=== PATIENT | female | born 1990 | race African-American/Black ===

== ENCOUNTER 2017-01-23 15:06 | Outpatient (CLI) | payer OTHER ==
[~2017-01-23] VITALS: Ht 162.6 cm; Wt 60.5 kg
[~2017-01-23 15:06] MED LIST: CEPH-443 PO; METGEL45 TOP; NITR-58 PO; NO MEDS
[2017-01-23 15:12] VITALS: Ht 162.6 cm; Wt 60.5 kg
[2017-01-23 15:13] VITALS: BP 118/74; PULSE 63; RESP 19
--- NOTE | 2017-01-23 15:47 | RADRPT ---
PROCEDURE: US OB biophysical profile. CLINICAL INDICATION: Spotting TECHNIQUE: Multiple sonographic images of the pelvis were obtained. The images were reviewed on a PACS workstation. COMPARISON: No prior studies are available for comparison. FINDINGS: There is a single viable intrauterine gestation. Cardiac activity is present with 141 a beats per m inute. There is a vertex presentation. The placenta is right lateral in location. There is no evidence of placental abruption. There is a mildly low amount of amniotic fluid with an ROE = 7.6 cm. Biophysical profile: movement 2/2 tone 2/2. breathing 2/2 ROE 2/2 Total 06/17 RPTAT: AA . IMPRESSION: Normal biophysical profile. Mildly low ROE of 7.6 cm. Physician Ilana Date Time Electronically viewed and signed by Physician Ilana on 01/23/2017 15:47 /
--- NOTE | 2017-01-23 16:17 | CONS ---
Date/Time of Note Date/Time of Note DATE: 01/23/17 TIME: 16:10 Consultation Date/Type/Reason Admit Date/Time January 23, 2007 OB triage consult Initial Consult Date Reason for Consultation Vaginal spotting rule out placenta previa 24 HR Interval Summary Free Text/Dictation This patient is a 20 years old 3 para 0 2 with EDC of February which makes her 36 weeks and 2 days She came to obstetrical triage clinic complaining of the vaginal spotting and lower abdominal pressure since this morning On examination patient has no abdominal tenderness no contractions fetus appears to be in vertex presentation No CVA tenderness . Her vital signs are normal; blood pressure 118/74 pulse rate 63 respiration 18 temperature 98. Pelvic exam was not performed. On ultrasound study her NST was reactive her biophysical profile was 8 of 8 with ROE of 7.67 no evidence of placental abruption placenta was located in the right lateral area Subjective hx not possible: pt critical Constitutional: No chills, No diaphoresis, No disoriented, No febrile, No improved, No no complaints, No other, No poor po, No requiring IVF, No requiring O2 Detailed Summary Eyes: No discharge, No no complaints, No other, No pain, No redness, No visual change ENT: No bleeding, No congestion, No discharge, No dysphagia, No no complaints, No other, No pain, No sore throat Respiratory: No cough, No no complaints, No other, No pain, No pleuritic pain, No shortness of breath, No sputum, No wheezing Cardiovascular: No chest pain, No edema, No lightheadedness, No no complaints, No orthopenea, No other, No palpitations, No paroxysmal nocturnal dyspnea Gastrointestinal: No blood, No constipation, No decreased appetite, No diarrhea , No flatus, No nausea, No no complaints, No other, No pain, No passing stool, No vomiting Genitourinary: other (As I mentioned no CVA tenderness no suprapubic area tenderness no dysuria), No bleeding, No discharge, No dysuria, No flank pain, No hematuria, No no complaints Musculoskeletal: No back pain, No bone/joint pain, No neck pain, No no complaints, No other, No restricted range of motion, No swelling Skin: No bruising, No erythema, No laceration, No no complaints, No other, No pruritis, No rash, No skin lesions Neurologic: No confusion, No dizziness, No focal-weakness, No headache, No no complaints, No other, No seizure, No syncope Endocrine: No dry skin, No no complaints, No other, No polydypsia, No polyuria , No temp intolerance Lymphatic: No adenopathy, No lymphadema, No no complaints, No other, No tender nodes Exam/Review of Systems Vital Signs Vitals Vital Signs Date Time Temp Pulse Resp B/P Pulse Ox O2 Delivery O2 Flow Rate FiO2 01/23/17 15:13 98.6 63 19 118/74 99 Room Air RENZO MILLER MD Jan 23, 2017 16:17
--- NOTE | 2017-01-23 16:36 | TRIAGE ---
OB Triage Datetime Report Generated by CPN: 01/23/2017 16:35 Datetime: 01/23/2017 15:59 Stage of : OB Triage Maternal Assessment Level of Consciousness: Fully Conscious DTR's/Clonus: DTRs 1+ Headache: Denies Breath Sounds, Left: Clear and Equal Breath Sounds, Right: Clear and Equal Nausea/Vomiting: Denies RUQ Epigastric Pain: Denies Labor Evaluation Frequency: NONE Monitor Mode: External Resting Tone [place]: Relaxed Heart Rate FHR Baseline Rate: 125 Monitor Mode: External US Variability: Moderate 6-25 bpm Accelerations: 15X15 Decelerations: None Category: Category I Pain Assessment Pain Scale: 0 Pain Presence: None/Denies Pain Type: N/A Pain Goal: 3 Vaginal Exam Membrane Status: Intact Datetime: 01/23/2017 15:26 Stage of : OB Triage Maternal Assessment Level of Consciousness: Fully Conscious DTR's/Clonus: DTRs 1+ Headache: Denies Blurred Vision: No Breath Sounds, Left: Clear and Equal Breath Sounds, Right: Clear and Equal Nausea/Vomiting: Denies RUQ Epigastric Pain: Denies Facial Edema: 1+ Labor Evaluation Frequency: NONE Monitor Mode: External Resting Tone [place]: Relaxed Heart Rate FHR Baseline Rate: 125 Monitor Mode: External US Variability: Moderate 6-25 bpm Accelerations: 15X15 Decelerations: None Category: Category I Pain Assessment Pain Scale: 0 Pain Presence: None/Denies Pain Type: N/A Pain Goal: 3 Vaginal Exam Membrane Status: Intact Datetime: 01/23/2017 15:16 Assessment Type: Triage EGA: 36.2 Maternal Assessment Level of Consciousness: Fully Conscious DTR's/Clonus: DTRs 2+; No Clonus Headache: Denies Blurred Vision: No Respiratory Effort: Unlabored; Regular Rhythm; Equal Expansion Breath Sounds, Left: Clear and Equal Breath Sounds, Right: Clear and Equal Nausea/Vomiting: Denies RUQ Epigastric Pain: Denies Lower Extremities Edema: None Degree: None Upper Extremities Edema: None Degree: None Facial Edema: None Fall Risk Assessment History of Falling: (0) No Secondary Diagnosis: (0) No Ambulatory Aid: (0) Bedrest/Nurse Assist IV Therapy: (0) No Gait: (0) Normal/Bedrest/Immobile Mental Status: (0) Oriented to Own Ability Fall Score: 0 Fall Risk Score Definition: No Risk: No action required Datetime: 01/23/2017 15:04 Time of Arrival: 01/23/2017 15:04 Arrived By: Ambulatory Arrived From: Home Chief Complaint: PT CAME IN C/O SPOTTING AFTER BEEIN CHECKED BY THE MD AT 10:00. DENIES ANY ABDOMI NAL TRAUMA AND STATES + MOVEMENT Movement: Present Contractions: Denies/Absent Rupture of Membranes: Denies Vaginal Bleeding: Normal Show Vaginal Discharge: Denies Recent Sexual Intercouse: Denies Abdominal Trauma: Not Applicable Additional Patient Complaints: NONE Initial Plan: NST AND BPP
== END 2017-01-23 16:04 | disposition home or self-care (01) ==
LOC: OBT 15:06 → L-D 15:06 → OBT 16:04
PROVIDERS: ATTEND Obstetrics & Gynecology
DX: O47.03 False labor before 37 completed weeks of gestation, third trimester (principal); Z3A.36 36 weeks gestation of pregnancy
CPT/HCPCS: 76818; Z7500; G0463

== ENCOUNTER 2017-01-25 13:11 | Outpatient (CLI) | payer OTHER ==
[~2017-01-25] VITALS: Ht 160 cm; Wt 62.7 kg
[~2017-01-25 13:11] MED LIST changes: -CEPH-443 PO; -METGEL45 TOP; -NITR-58 PO
[2017-01-25] MEDS ORDERED: PRENAT PO (13:18)
[2017-01-25] MEDS ORDERED: CITRACAL PO (13:18)
[2017-01-25] MEDS ORDERED: FOLI1POW MC (13:19)
[2017-01-25 13:20] VITALS: BP 112/66; PULSE 76; RESP 18; Ht 160 cm; Wt 62.7 kg
--- NOTE | 2017-01-25 14:23 | RADRPT ---
PROCEDURE: US biophysical profile. CLINICAL INDICATION: Decreased motion. TECHNIQUE: Multiple sonographic images of the uterus were obtained. The images were revi ewed on a PACS workstation. COMPARISON: No prior studies are available for comparison. FINDINGS: There is a single live intrauterine gestation. heart rate is 157 beats per minute. The position is cephalic. The placenta is fundal posterior grade 1 with no abruption or previa. The ROE is 9.1 cm. (Normal = 5-20 cm.) Breathing Movement: 2 Gross Body Movement: 2 Tone: 2 Qualitative Amniotic Fluid Volume: 2 TOTAL: 8 IMPRESSION: 1. The biophysical score is 8/8. RPTAT: QQ .Efrain Corral MD, MD Date Time Electronically viewed and signed by .Efrain Corral MD, on 01/25/2017 14:23 .R/
--- NOTE | 2017-01-25 16:01 | TRIAGE ---
OB Triage Datetime Report Generated by CPN: 01/25/2017 16:00 Datetime: 01/25/2017 15:21 Labor Evaluation Frequency: OCCAS Monitor Mode: External Duration (sec)2399: 60-90 Quality: Mild Pattern: Normal: <= 5 Contractions in 10 Minutes Resting Tone [place]: Relaxed Heart Rate FHR Baseline Rate: 135 Monitor Mode: External US FHR Baseline Changes: No Baseline Change Variability: Moderate 6-25 bpm Accelerations: 15X15 Decelerations: None Category: Category I Datetime: 01/25/2017 14:30 Labor Evaluation Frequency: OCCAS Monitor Mode: External Duration (sec)2399: 40-60 Quality: Mild Pattern: Normal: <= 5 Contractions in 10 Minutes Resting Tone [place]: Relaxed Heart Rate FHR Baseline Rate: 145 Monitor Mode: External US FHR Baseline Changes: No Baseline Change Variability: Moderate 6-25 bpm Accelerations: 15X15 Decelerations: None Category: Category I Datetime: 01/25/2017 13:26 Labor Evaluation Frequency: OCCAS Monitor Mode: External Duration (sec)2399: 40-60 Quality: Mild Pattern: Normal: <= 5 Contractions in 10 Minutes Resting Tone [place]: Relaxed Heart Rate FHR Baseline Rate: 135 Monitor Mode: External US Variability: Moderate 6-25 bpm Accelerations: 15X15 Decelerations: None Category: Category I Datetime: 01/25/2017 13:25 Assessment Type: Admission Assessment Maternal Assessment Level of Consciousness: Fully Conscious DTR's/Clonus: DTRs 2+; No Clonus Headache: Denies Blurred Vision: No Respiratory Effort: Unlabored; Regular Rhythm; Equal Expansion Breath Sounds, Left: Clear and Equal Breath Sounds, Right: Clear and Equal Nausea/Vomiting: Denies RUQ Epigastric Pain: Denies Lower Extremities Edema: None Degree: None Upper Extremities Edema: None Degree: None Facial Edema: None Fall Risk Assessment History of Falling: (0) No Secondary Diagnosis: (0) No Ambulatory Aid: (0) Bedrest/Nurse Assist IV Therapy: (0) No Gait: (0) Normal/Bedrest/Immobile Mental Status: (0) Oriented to Own Ability Fall Score: 0 Fall Risk Score Definition: No Risk: No action required Datetime: 01/25/2017 13:23 Time of Arrival: 01/25/2017 13:05 EGA: 36.4 Arrived By: Ambulatory Arrived From: Home Chief Complaint: FOLLOW UP ROE Movement: Present Contractions: Denies/Absent Rupture of Membranes: Denies Vaginal Bleeding: None Vaginal Discharge: Denies Recent Sexual Intercouse: Denies Abdominal Trauma: Not Applicable Patient Complaints: Other Time Provider Notified: 01/25/2017 15:30 Provider Notified: DR GATICA Initial Plan: NST, BPP WITH ROE Datetime: 01/23/2017 15:16 EGA: 36.2 Fall Score: 0 Fall Risk Score Definition: No Risk: No action required
--- NOTE | 2017-01-25 16:03 | QN ---
Documentation Comment Laborist Dr Eagle's pt 26 y.o. A2 with an IUPat 36w 4d here for f/u low ROE. Prior ROE yesterday was 7.6. Pt feels the baby moving. No leaking. No bleeding. PMHx: none. PSHx: none. NKDA. BP 112/66 T=97.9. NST: baseline 130 bpm with accels to 160 bpm. No decels. UC's q 10 minutes, occasionally felt by pt. ROE 9.1 cm. BPP 8/8. A: IUP at 36w 4d. Normal ROE. P; D/C home. Follow up with her MD as scheduled. JACOBO GATICA MD Jan 25, 2017 16:03
== END 2017-01-25 16:08 | disposition home or self-care (01) ==
LOC: L-D 13:11 → OBT 13:11
PROVIDERS: ATTEND Obstetrics & Gynecology
DX: O41.03X0 Oligohydramnios, third trimester, not applicable or unspecified (principal); Z3A.36 36 weeks gestation of pregnancy
CPT/HCPCS: 76818; Z7500; G0463

== ENCOUNTER 2017-02-03 21:18 | Outpatient (CLI) | payer OTHER ==
[~2017-02-03] VITALS: Ht 160 cm; Wt 63.6 kg
[~2017-02-03 21:18] MED LIST changes: +CITRACAL PO; +FOLI1POW MC; +PRENAT PO
[2017-02-03 21:33] VITALS: Ht 160 cm; Wt 63.6 kg
[2017-02-03 21:34] VITALS: BP 112/56; PULSE 79; RESP 18
[2017-02-03 22:20] LABS: ADD UMIC YES; URINE BILIRUBIN (Dip) NEGATIVE (NEGATIVE); URINE BLOOD (Dip) NEGATIVE (NEGATIVE); URINE COLOR LT. YELLOW (YELLOW); URINE GLUCOSE (Dip) NEGATIVE (NEGATIVE); URINE KETONES (Dip) TRACE (NEGATIVE); URINE LEUKOCYTE ESTERASE (Dip) TRACE (NEGATIVE); URINE NITRITE (Dip) NEGATIVE (NEGATIVE); URINE TOTAL PROTEIN (Dip) NEGATIVE (NEGATIVE); URINE UROBILINOGEN (Dip) 0.2 E.U./dL (0.1-1.0)
--- NOTE | 2017-02-03 22:42 | RADRPT ---
PROCEDURE: Biophysical profile. CLINICAL INDICATION: Pelvic pain. TECHNIQUE: Multiple sonographic images of the pelvis were obtained with transabdominal technique. COMPARISON: 01/25/2017. FINDINGS: There is a single living intrauterine gestation with the fetus in a vertex position. The placenta i s fundal and left lateral in location, grade 1 to 2. heart tones of 137 beats per minute are i dentified. There is normal amniotic fluid volume with an ROE of 4.9 cm. breathing movements = 2 Gross body movements = 2 tone = 2 Qualitative AFV = 0 IMPRESSION: Biophysical profile 6 out of 8. Oligohydramnios with an ROE of 4.9 cm. .Barrington Mcqueen MD, Date Time Electronically viewed and signed by .Barrington Mcqueen MD, on 02/03/2017 22:41 .T/
[2017-02-03 22:45] LABS: BACTERIA,URINE MODERATE; SQUAMOUS EPITHELIAL CELL,UR MANY; URINE RBCS NONE SEEN /HPF ([, 0])
--- NOTE | 2017-02-03 23:17 | PN ---
Date/Time of Note Date/Time of Note DATE: 02/03/17 TIME: 23:13 OB Subjective Subjective Subjective Patient is a primigravida at 37 weeks of gestation who presents with leaking of fluid, no contractions, no vaginal bleeding Patient reports positive movement Patient reports she was previously seen 2 weeks ago with the same complaint and ROE was noted to be borderline She was given p.o. hydration and the repeat ROE was within normal limits OB Objective Objective Objective No pooling and no nitrazine upon examination OB ultrasound indicating ROE 4.9 HEENT: WNL Heart: Rhythm Normal Abdomen: WNL Extremities: Normal Cervical Dilatation: None Membranes: Intact Heart Rate: 140's Accelerations: Accelerations Present Decelerations: No Decelerations Contractions on Admission: None OB Assessment/Plan Other Assessment: Rule out rupture of membranes Other plan: IV fluid hydration We will repeat ROE after couple hours and request for estimated weight AMADO MARTE Feb 03, 2017 23:17
[2017-02-03] MEDS: LACTATED RINGER'S 1,000 ML IV SCH ×2 (23:26→23:46)
--- NOTE | 2017-02-04 00:21 | RADRPT ---
PROCEDURE: Obstetrical ultrasound greater than 14 weeks CLINICAL INDICATION: Rupture of membranes. Follow-up evaluation TECHNIQUE: Real time sonographic imaging of the gravid uterus is performed transabdominally and mu ltiple static duran scale and Doppler images are submitted for review as are measurements. The image s are reviewed on the PACS. COMPARISON: 02/03/2017 FINDINGS: There is a single living intrauterine gestation in cephalic presentation. The heart beat is estimated at 132 bpm. The measurements are as follows: BPD:9.01 cm HC:32.24 cm AC:32.74 cm FL:7.16 cm Estimated gestational age is 36 weeks 4 days. The estimated date of delivery is 02/27/2017. The estimated weight is 2987 grams. Placenta is anterior fundal and grade2. There is no evidence of placenta previa or abruption. The amniotic fluid index is low estimated at 6.2 cm. RPTAT:HJJR IMPRESSION: 1. Single viable intrauterine gestation in cephalic presentation estimated at 36 weeks 4 days with t he estimated date of delivery 02/27/2017. 2. Estimated weight 2987 g. 3. Amniotic fluid index of 6.2 cm, previously 4.9 cm on the study of 02/03/2017. Physician Kraig Date Time Electronically viewed and signed by Physician Kraig on 02/04/2017 00:20 /
[2017-02-04] MEDS: LACTATED RINGER'S 1,000 ML IV SCH (00:22)
--- NOTE | 2017-02-04 02:13 | TRIAGE ---
OB Triage Datetime Report Generated by CPN: 02/04/2017 02:13 Datetime: 02/04/2017 00:30 Stage of : OB Triage Labor Evaluation Frequency: 0 Monitor Mode: External Heart Rate FHR Baseline Rate: 135 Monitor Mode: External US FHR Baseline Changes: No Baseline Change Variability: Moderate 6-25 bpm Accelerations: 15X15 Decelerations: None Category: Category I Datetime: 02/03/2017 23:30 Labor Evaluation Frequency: 0 Monitor Mode: External Heart Rate FHR Baseline Rate: 135 Monitor Mode: External US FHR Baseline Changes: No Baseline Change Variability: Moderate 6-25 bpm Accelerations: 15X15 Category: Category I Datetime: 02/03/2017 23:07 Stage of : OB Triage Datetime: 02/03/2017 22:54 Comments: LOSS OF CONTACT Datetime: 02/03/2017 22:52 Stage of : OB Triage Datetime: 02/03/2017 22:30 Labor Evaluation Frequency: 1 Monitor Mode: External Duration (sec)2399: 60 Heart Rate FHR Baseline Rate: 135 Monitor Mode: External US FHR Baseline Changes: No Baseline Change Variability: Moderate 6-25 bpm Accelerations: 15X15 Decelerations: None Category: Category I Datetime: 02/03/2017 22:07 Labor Evaluation Frequency: 1 Monitor Mode: External Duration (sec)2399: 60 Quality: Mild Pattern: Normal: <= 5 Contractions in 10 Minutes Resting Tone [place]: Relaxed Heart Rate FHR Baseline Rate: 145 FHR Baseline Changes: No Baseline Change Variability: Moderate 6-25 bpm Accelerations: 15X15 Decelerations: None Category: Category I Datetime: 02/03/2017 21:55 Stage of : OB Triage Datetime: 02/03/2017 21:45 Vaginal Exam Dilatation (cms): 0.0 Effacement (%): 0 Station: -3 Exam By: Lolis BUSH RN Membranes Ruptured Date/Time: 02/03/2017 21:00 Amniotic Fluid Color: Clear Vaginal Bleeding: None Pool: Negative ROM Test Kit: OBTAINED AND SENT Cervix, Consistency: Firm Cervix, Position: Posterior Datetime: 02/03/2017 21:27 Stage of : OB Triage Time of Arrival: 02/03/2017 21:19 EGA: 37.6 Arrived By: Wheelchair Arrived From: Home Chief Complaint: ROM @ 2100 Movement: Present Contractions: Irregular Time Contractions Began: 02/03/2017 11:30 Rupture of Membranes: Unsure Vaginal Bleeding: None Vaginal Discharge: Present Recent Sexual Intercouse: Denies Abdominal Trauma: Not Applicable Time Provider Notified: 02/03/2017 21:55 Provider Notified: DR MARSHALL Initial Plan: CALL BELLA CANTU/ TO RETURN FOR NST, BPP 02/06/17 Maternal Assessment Level of Consciousness: Fully Conscious DTR's/Clonus: DTRs 2+; No Clonus Headache: Denies Blurred Vision: No Respiratory Effort: Unlabored; Regular Rhythm; Equal Expansion Breath Sounds, Left: Clear and Equal Breath Sounds, Right: Clear and Equal Nausea/Vomiting: Denies RUQ Epigastric Pain: Denies Lower Extremities Edema: Bilateral Lower Extremities Degree: 1+ Upper Extremities Edema: None Degree: None Facial Edema: None Temperature Route: Oral Fall Risk Assessment History of Falling: (0) No Secondary Diagnosis: (0) No Ambulatory Aid: (0) Bedrest/Nurse Assist IV Therapy: (0) No Gait: (0) Normal/Bedrest/Immobile Mental Status: (0) Oriented to Own Ability Fall Score: 0 Fall Risk Score Definition: No Risk: No action required Monitor Mode: External Monitor Mode: External US Pain Assessment Pain Scale: 8 Pain Presence: Intermittent Pain Type: Contraction Pain Location: Abdomen; Back Datetime: 01/25/2017 13:25 Fall Score: 0 Fall Risk Score Definition: No Risk: No action required Datetime: 01/25/2017 13:23 EGA: 36.4 Datetime: 01/23/2017 15:16 EGA: 36.2 Fall Score: 0 Fall Risk Score Definition: No Risk: No action required
[2017-02-04] MEDS ORDERED: LACTATED RINGER'S 1,000 ML IV SCH (22:51)
== END 2017-02-04 00:35 | disposition home or self-care (01) ==
LOC: OBT 21:18 → L-D 21:18 → OBT 02-04 00:35
PROVIDERS: ATTEND Obstetrics & Gynecology
DX: O47.1 False labor at or after 37 completed weeks of gestation (principal); Z3A.37 37 weeks gestation of pregnancy
CPT/HCPCS: 76815; 76818; 81001; 84112; 87086; 96360; J7120; Z7500; 81003; G0463

== ENCOUNTER 2017-02-05 10:31 | Outpatient (CLI) | payer OTHER ==
[~2017-02-05] VITALS: Ht 160 cm; Wt 62.5 kg
[2017-02-05 10:44] VITALS: BP 111/71; PULSE 90; RESP 18; Ht 160 cm; Wt 62.5 kg
--- NOTE | 2017-02-05 11:07 | RADRPT ---
PROCEDURE: US OB biophysical profile. CLINICAL INDICATION: decreased movements, oligohydramnios TECHNIQUE: Multiple sonographic images of the pelvis were obtained. The images were reviewed on a PACS workstation. COMPARISON: 02/03 FINDINGS: There is a single viable intrauterine gestation. Cardiac activity is present with 146 beats per min erik. There is a vertex presentation. The placenta is posterior. There is no evidence of placental abruption. There is a normal amount of amniotic fluid with an ROE = 8.2 cm. Biophysical profile: movement 2/2 tone 2/2. breathing 2/2 ROE 2/2 Total 06/17 RPTAT: AA . IMPRESSION: Normal biophysical profile. Normal ROE. . .Benedicto Ponce MD, Date Time Electronically viewed and signed by .Benedicto Ponce MD, MD on 02/05/2017 11:06 .S/
[2017-02-05] MEDS ORDERED: ACETAMINOPHEN 325 MG TAB PO ONE (11:30)
[2017-02-05 12:07] LABS: BARBITURATES Negative (NEGATIVE); BENZODIAZEPINES Negative (NEGATIVE); CANNABINOIDS Negative (NEGATIVE); COCAINE Negative (NEGATIVE); OPIATES Negative (NEGATIVE)
--- NOTE | 2017-02-05 12:13 | TRIAGE ---
OB Triage Datetime Report Generated by CPN: 02/05/2017 12:13 Datetime: 02/05/2017 11:23 Vaginal Exam Dilatation (cms): 0.5 Effacement (%): 60 Station: -3 Exam By: ZURIDALAN Vaginal Bleeding: None Cervix, Consistency: Moderate Cervix, Position: Posterior Datetime: 02/05/2017 10:42 Assessment Type: Triage Maternal Assessment Level of Consciousness: Fully Conscious DTR's/Clonus: DTRs 2+; No Clonus Headache: Denies Blurred Vision: No Respiratory Effort: Unlabored; Regular Rhythm; Equal Expansion Breath Sounds, Left: Clear and Equal Breath Sounds, Right: Clear and Equal Nausea/Vomiting: Denies RUQ Epigastric Pain: Denies Lower Extremities Edema: Bilateral Lower Extremities Degree: None Upper Extremities Edema: None Degree: None Facial Edema: None Fall Risk Assessment History of Falling: (0) No Secondary Diagnosis: (0) No Ambulatory Aid: (0) Bedrest/Nurse Assist IV Therapy: (0) No Gait: (0) Normal/Bedrest/Immobile Mental Status: (0) Oriented to Own Ability Fall Score: 0 Fall Risk Score Definition: No Risk: No action required Datetime: 02/04/2017 00:35 Time of Arrival: 02/05/2017 10:28 EGA: 37.5 Arrived By: Ambulatory Arrived From: Home Chief Complaint: PT HERE FOR REPEAT ROE. Movement: Present Contractions: Denies/Absent Rupture of Membranes: Denies Vaginal Bleeding: None Vaginal Discharge: Denies Recent Sexual Intercouse: Denies Abdominal Trauma: Not Applicable Patient Complaints: None Provider Notified: ESHAELISEOIAN Initial Plan: NST/BPP Datetime: 02/03/2017 21:27 EGA: 37.3 Fall Score: 0 Fall Risk Score Definition: No Risk: No action required Datetime: 01/25/2017 13:25 Fall Score: 0 Fall Risk Score Definition: No Risk: No action required Datetime: 01/25/2017 13:23 EGA: 36.1 Datetime: 01/23/2017 15:16 EGA: 35.6 Fall Score: 0 Fall Risk Score Definition: No Risk: No action required
--- NOTE | 2017-02-05 13:35 | QN ---
Documentation Comment 26-year-old with IUP at 37 weeks and 5 days here today for repeat ROE due to oligohydramnios noted 2 days ago when she was sent from the clinic when presented with complaint of bleeding post vaginal exam in the office. She had a ROE of 4.9. She received hydration and ROE improved to 6.2. Subsequently she was discharged home with adequate hydration and to return today to triage for repeat ROE. She denies any leaking of fluid, vaginal bleeding or decreased movement. She feels lower abdominal cramp. She does not have any contractions on the monitor. Physical examination: General appearance: Alert and oriented 4 is in mild distress. Abdomen: Soft, nontender, no rebound tenderness, no guarding, no rigidity, fundal height consistent with gestational age NST: No contractions seen on the monitor Category 1 tracing. Blood group: A positive per record records reviewed. She had urine toxicology positive for cocaine and marijuana. A urine toxicology requested today Ultrasound 2 days ago when she presented with vaginal bleeding negative for evidence of abruption or previa. Estimated weight on ultrasound on February 03 2987 g. Sterile vaginal examination: Cervix fingertip 60% posterior soft Patient does not appear to be in labor. ROE today 8.2 PROCEDURE: US OB biophysical profile. CLINICAL INDICATION: decreased movements, oligohydramnios TECHNIQUE: Multiple sonographic images of the pelvis were obtained. The images were reviewed on a PACS workstation. COMPARISON: 02/03 FINDINGS: There is a single viable intrauterine gestation. Cardiac activity is present with 146 beats per minute. There is a vertex presentation. The placenta is posterior. There is no evidence of placental abruption. There is a normal amount of amniotic fluid with an ROE = 8.2 cm. Biophysical profile: movement 2/2 tone 2/2. breathing 2/2 ROE 2/2 Total 06/17 RPTAT: AA . IMPRESSION: Normal biophysical profile. Normal ROE. . Assessment: IUP at 37 weeks and 5 days Oligohydramnios, resolved with p.o. hydration. Recent ROE normal False labor pain. Patient will be discharged home. Has appointment with Dr. Blanc again tomorrow in the clinic. Strict labor precaution and kick count discussed with the patient. Patient verbalized understanding Return to triage if she has more frequent closer contractions, vaginal bleeding , decreased movement or any other concern. DAKOTA RAM MD Feb 05, 2017 13:35
== END 2017-02-05 12:20 | disposition home or self-care (01) ==
LOC: L-D 10:31 → OBT 10:31
PROVIDERS: ATTEND Obstetrics & Gynecology
DX: O41.03X0 Oligohydramnios, third trimester, not applicable or unspecified (principal); O47.1 False labor at or after 37 completed weeks of gestation; O36.8130 Decreased fetal movements, third trimester, not applicable or unspecified; Z3A.37 37 weeks gestation of pregnancy
CPT/HCPCS: 76818; 80307; Z7500; G0463

== ENCOUNTER 2017-02-06 15:26 | Outpatient (CLI) | payer OTHER ==
[~2017-02-06] VITALS: Ht 160 cm; Wt 62.8 kg
[~2017-02-06 15:26] MED LIST changes: -NO MEDS
[2017-02-06 15:39] VITALS: Ht 160 cm; Wt 62.8 kg
[2017-02-06 15:40] VITALS: BP 111/68; PULSE 77
--- NOTE | 2017-02-06 16:26 | RADRPT ---
PROCEDURE: US OB biophysical profile. CLINICAL INDICATION: decreased movements, low ROE TECHNIQUE: Multiple sonographic images of the pelvis were obtained. The images were reviewed on a PACS workstation. COMPARISON: 02/05/2017 FINDINGS: There is a single viable intrauterine gestation. Cardiac activity is present with 137 beats per min [place]. There is a vertex presentation. The placenta is left lateral. There is no evidence of placental abruption. There is a normal amount of amniotic fluid with an ROE = 8.2 cm. Biophysical profile: movement 2/2 tone 2/2. breathing 2/2 ROE 2/2 Total 06/17 RPTAT: AA . IMPRESSION: Normal biophysical profile. . .Benedicto Ponce MD, MD Date Time Electronically viewed and signed by .Benedicto Ponce MD, MD on 02/06/2017 16:25 .S/
--- NOTE | 2017-02-06 17:36 | CONS ---
Date/Time of Note Date/Time of Note DATE: 02/06/17 TIME: 17:29 Consultation Date/Type/Reason Admit Date/Time February 06, 2017 Obstetrical triage consult Initial Consult Date This patient is a 26 years old 1 para 0 with EDC of 02/21/2017 which makes her 37 weeks and 6 days She has been following for low ROE and she was referred here in triage area for the same purpose again her last ORE was 8.2 cm which improved to 8.7 today on examination her vital signs are normal blood pressure 111/68 pulse 77 respiration 16 temperature 97.3 on exam physically she appears normal her face neck chest heart abdomen old appears to be normal normal intrauterine contraction heart tones normal with good acceleration no B-cell with acceptable variability On pelvic examination today her cervix was 1 finger -2 station about 50% effaced membrane is intact The report is a single viable intrauterine gestation cardiac activity present with 170 137 bpm baby was in vertex presentation placenta on the left lateral side no evidence of placenta previa or abruption there was fairly normal amount of amniotic fluid with ROE of 8.2 cm biophysical profile was 8/8 on ultrasound study Detailed Summary Eyes: No discharge, No no complaints, No other, No pain, No redness, No visual change ENT: No bleeding, No congestion, No discharge, No dysphagia, No no complaints, No other, No pain, No sore throat Respiratory: No cough, No no complaints, No other, No pain, No pleuritic pain, No shortness of breath, No sputum, No wheezing Cardiovascular: No chest pain, No edema, No lightheadedness, No no complaints, No orthopenea, No other, No palpitations, No paroxysmal nocturnal dyspnea Gastrointestinal: No blood, No constipation, No decreased appetite, No diarrhea , No flatus, No nausea, No no complaints, No other, No pain, No passing stool, No vomiting Genitourinary: other (On pelvic examination the cervix was about 1 fingertip cervix 50% effaced and -2 station with intact membranes), No bleeding, No discharge, No dysuria, No flank pain, No hematuria, No no complaints Musculoskeletal: No back pain, No bone/joint pain, No neck pain, No no complaints, No other, No restricted range of motion, No swelling Skin: No bruising, No erythema, No laceration, No no complaints, No other, No pruritis, No rash, No skin lesions Neurologic: No confusion, No dizziness, No focal-weakness, No headache, No no complaints, No other, No seizure, No syncope Endocrine: No dry skin, No no complaints, No other, No polydypsia, No polyuria , No temp intolerance Lymphatic: No adenopathy, No lymphadema, No no complaints, No other, No tender nodes Exam/Review of Systems Vital Signs Vitals Vital Signs Date Time Temp Pulse Resp B/P Pulse Ox O2 Delivery O2 Flow Rate FiO2 02/06/17 15:40 97.3 77 111/68 RENZO MILLER MD Feb 06, 2017 17:36
== END 2017-02-06 17:33 | disposition home or self-care (01) ==
LOC: L-D 15:26 → OBT 15:26
PROVIDERS: ATTEND Obstetrics & Gynecology
DX: O41.03X0 Oligohydramnios, third trimester, not applicable or unspecified (principal); Z3A.37 37 weeks gestation of pregnancy
CPT/HCPCS: 76818; Z7500; G0463

== ENCOUNTER 2017-02-09 14:27 | Outpatient (CLI) | payer OTHER ==
--- NOTE | 2017-02-09 16:06 | HP ---
Date/Time of Note Date/Time of Note DATE: 02/09/17 TIME: 16:00 OB - History Hx of Present Free Text/Dictation OB Triage Pt is a 26yo G1 at 38+2 presenting for NST/BPP in the setting of low ROE on 02/03 and normal AFIs thereafter. Pt reports normal FM, denies LOF or VB. Had some UCs last night, none now. Has date for IOL on Friday02/14/17. Estimated Due Date: Feb 21, 2017 : 1 Care: Good Care OB Admission Exam Vital Signs Vital Signs T 98.3 BP 106/69 P 80 R 18 Physical Exam Heart Rate: 130's Accelerations: Accelerations Present Decelerations: No Decelerations Varibility: Moderate Contractions on Admission: None OB Assessment/Plan Other Assessment: Normal ROE Reassuring FWB Other plan: ROE 8.18 (results faxed from U/S department), BPP 8/8 Given reactive NST and normal ROE and BPP, pt appropriate for d/c home PO hydration recommended Discussed process of induction at length with pt, her partner and her mother. FKC, PROM and Labor precautions reviewed. Questions answered to their satisfaction. Pt to f/up as recommended by Dr. Shagufta gregorio in triage for NST/BPP and as scheduled in clinic on 02/13/17 MACK HEATON MD Feb 09, 2017 16:06
--- NOTE | 2017-02-09 16:25 | TRIAGE ---
OB Triage Datetime Report Generated by CPN: 02/09/2017 16:25 Datetime: 02/09/2017 15:20 Stage of : OB Triage Maternal Assessment Level of Consciousness: Fully Conscious DTR's/Clonus: DTRs 1+ Headache: Denies Breath Sounds, Left: Clear and Equal Breath Sounds, Right: Clear and Equal Nausea/Vomiting: Denies RUQ Epigastric Pain: Denies Labor Evaluation Frequency: NONE Monitor Mode: External Resting Tone Kindred: Relaxed Heart Rate FHR Baseline Rate: 135 Monitor Mode: External US Variability: Moderate 6-25 bpm Accelerations: 15X15 Decelerations: None Category: Category I Membrane Status: Intact Datetime: 02/09/2017 15:17 Comments: NST REAACTIVE BPP 8/8 ROE 8.18CM VTX Datetime: 02/09/2017 14:54 Assessment Type: Triage Maternal Assessment Level of Consciousness: Fully Conscious DTR's/Clonus: DTRs 2+; No Clonus Headache: Denies Blurred Vision: No Respiratory Effort: Unlabored; Regular Rhythm; Equal Expansion Breath Sounds, Left: Clear and Equal Breath Sounds, Right: Clear and Equal Nausea/Vomiting: Denies RUQ Epigastric Pain: Denies Lower Extremities Edema: None Degree: None Upper Extremities Edema: None Degree: None Facial Edema: None Fall Risk Assessment History of Falling: (0) No Secondary Diagnosis: (0) No Ambulatory Aid: (0) Bedrest/Nurse Assist IV Therapy: (0) No Gait: (0) Normal/Bedrest/Immobile Mental Status: (0) Oriented to Own Ability Fall Score: 0 Fall Risk Score Definition: No Risk: No action required Datetime: 02/09/2017 14:52 Maternal Assessment Level of Consciousness: Fully Conscious DTR's/Clonus: DTRs 1+ Headache: Denies Blurred Vision: No Respiratory Effort: Unlabored Breath Sounds, Left: Clear and Equal Breath Sounds, Right: Clear and Equal Nausea/Vomiting: Denies RUQ Epigastric Pain: Denies Facial Edema: None Labor Evaluation Frequency: NONE Monitor Mode: External Resting Tone Kindred: Relaxed Heart Rate FHR Baseline Rate: 135 Monitor Mode: External US Variability: Moderate 6-25 bpm Accelerations: 15X15 Decelerations: None Category: Category I Membrane Status: Intact Datetime: 02/09/2017 14:51 Maternal Assessment Level of Consciousness: Fully Conscious DTR's/Clonus: DTRs 1+ Headache: Denies Blurred Vision: No Respiratory Effort: Unlabored Breath Sounds, Left: Clear and Equal Breath Sounds, Right: Clear and Equal Nausea/Vomiting: Denies RUQ Epigastric Pain: Denies Facial Edema: None Labor Evaluation Frequency: NONE Monitor Mode: External Resting Tone Kindred: Relaxed Heart Rate FHR Baseline Rate: 135 Monitor Mode: External US Variability: Moderate 6-25 bpm Accelerations: 15X15 Decelerations: None Category: Category I Membrane Status: Intact Datetime: 02/09/2017 14:49 Time of Arrival: 02/09/2017 14:49 EGA: 38.2 Arrived By: Ambulatory Arrived From: Home Chief Complaint: PT CAME IN FROM [facility] OFFICE FOR NST AND BPP FOR LOW ROE Movement: Present Contractions: Denies/Absent Rupture of Membranes: Denies Vaginal Discharge: Denies Recent Sexual Intercouse: Denies Abdominal Trauma: Not Applicable Additional Patient Complaints: NONE Time Provider Notified: 02/09/2017 14:51 Provider Notified: HEATON/ESHAELISEOIAN Initial Plan: NST AND BPP Datetime: 02/06/2017 17:19 Stage of : OB Triage Datetime: 02/06/2017 16:39 Stage of : OB Triage Datetime: 02/06/2017 16:35 Vaginal Exam Dilatation (cms): 0.5 Effacement (%): 50 Station: -2 Exam By: S DALLAS Vaginal Bleeding: None Cervix, Consistency: Soft Cervix, Position: Posterior Presentation 'A': Cephalic Datetime: 02/06/2017 16:28 Labor Evaluation Frequency: 4-6 Monitor Mode: External Duration (sec)2399: 50-70 Quality: Mild Resting Tone Kindred: Relaxed Heart Rate FHR Baseline Rate: 135 Monitor Mode: External US Variability: Moderate 6-25 bpm Accelerations: 10X10 Decelerations: None Category: Category I Pain Assessment Pain Scale: 0 Pain Presence: None/Denies Pain Type: N/A Pain Goal: 3 Pain Relief Measures: Comfort Measures Datetime: 02/06/2017 15:36 Stage of : OB Triage Assessment Type: Triage Maternal Assessment Level of Consciousness: Fully Conscious DTR's/Clonus: DTRs 2+; No Clonus Headache: Denies Blurred Vision: No Respiratory Effort: Unlabored; Regular Rhythm; Equal Expansion Breath Sounds, Left: Clear and Equal Breath Sounds, Right: Clear and Equal Nausea/Vomiting: Denies RUQ Epigastric Pain: Denies Facial Edema: None Temperature Route: Axillary Fall Risk Assessment History of Falling: (0) No Secondary Diagnosis: (0) No Ambulatory Aid: (0) Bedrest/Nurse Assist IV Therapy: (0) No Gait: (0) Normal/Bedrest/Immobile Mental Status: (0) Oriented to Own Ability Fall Score: 0 Fall Risk Score Definition: No Risk: No action required Labor Evaluation Frequency: X1 Monitor Mode: External Duration (sec)2399: 80 Quality: Mild (Annotations: FEELS TIGHTENING) Pattern: Normal: <= 5 Contractions in 10 Minutes Resting Tone Kindred: Relaxed Heart Rate FHR Baseline Rate: 135 Monitor Mode: External US Variability: Moderate 6-25 bpm Decelerations: None Category: Category II Pain Assessment Pain Scale: 0 Pain Presence: None/Denies Pain Type: N/A Pain Goal: 3 Pain Relief Measures: Comfort Measures Datetime: 02/05/2017 12:13 Time of Arrival: 01/30/2017 15:25 EGA: 36.6 Arrived By: Ambulatory Arrived From: Office Chief Complaint: SENT FROM OFFICE TO EVALUATE LOW ROE, PREVIOUS VISIT WAS 02/16, YESTERDAY WAS 8. DENIES UC'S OR BLEEDING Movement: Present Contractions: Denies/Absent Rupture of Membranes: Denies Vaginal Bleeding: None Vaginal Discharge: Denies Recent Sexual Intercouse: Denies Abdominal Trauma: Not Applicable Patient Complaints: None Time Provider Notified: 02/06/2017 16:39 Provider Notified: ROLANDO Initial Plan: MONITOR, BPP/ROE Datetime: 02/05/2017 10:42 Fall Score: 0 Fall Risk Score Definition: No Risk: No action required Datetime: 02/04/2017 00:35 EGA: 37.5 Time Provider Notified: 02/05/2017 11:15 Datetime: 02/03/2017 21:27 EGA: 37.3 Fall Score: 0 Fall Risk Score Definition: No Risk: No action required Datetime: 01/25/2017 13:25 Fall Score: 0 Fall Risk Score Definition: No Risk: No action required Datetime: 01/25/2017 13:23 EGA: 36.1 Datetime: 01/23/2017 15:16 EGA: 35.6 Fall Score: 0 Fall Risk Score Definition: No Risk: No action required
--- NOTE | 2017-02-09 16:36 | RADRPT ---
PROCEDURE: OB ultrasound for biophysical profile CLINICAL INDICATION: Biophysical profile. . Low amniotic fluid index. TECHNIQUE: Multiple sonographic images of the pelvis were obtained. Transabdominal view of the gr avid uterus are available for review. The images were reviewed on a PACS workstation. COMPARISON: 02/06/2017 FINDINGS: Single intrauterine gestation. Presentation: Cephalic. Partially visualized placenta: Internal right breathing movement = 2/2 tone = 2/2 motion = 2/2 ROE = 2/2 ROE = 8.1 cm heart rate: 138 beats per minute IMPRESSION: Single intrauterine gestation. Biophysical profile 06/17 Amniotic fluid index of 8.1 cm, unchanged. RPTAT: AADD .Altaf Hyman MD, Date Time Electronically viewed and signed by .Altaf Hyman MD, on 02/09/2017 16:36 .B/
== END 2017-02-09 16:00 | disposition home or self-care (01) ==
LOC: OBT 14:27 → L-D 14:28 → OBT 16:00
PROVIDERS: ATTEND Obstetrics & Gynecology
DX: O62.9 Abnormality of forces of labor, unspecified (principal); Z3A.38 38 weeks gestation of pregnancy
CPT/HCPCS: 76818; Z7500; G0463

== ENCOUNTER 2017-02-14 07:30 | Inpatient (IN) | payer OTHER ==
[~2017-02-14] VITALS: Ht 160 cm; Wt 64.0 kg
[2017-02-14 08:05] VITALS: Ht 160 cm; Wt 64.0 kg
[2017-02-14] MEDS ORDERED: BUTORPHANOL 2 MG INJ IV PRN (08:30)
[2017-02-14] MEDS ORDERED: METHYLERGONOVINE 0.2 MG INJ IM PRN (08:30)
[2017-02-14] MEDS ORDERED: LIDOCAINE 1% (MPF) 30 ML INJ INJ PRN (08:30)
[2017-02-14] MEDS ORDERED: MISOPROSTOL 200 MCG TAB PR PRN (08:30)
[2017-02-14] MEDS ORDERED: CARBOPROST 250 MCG INJ IM PRN (08:30)
[2017-02-14] MEDS ORDERED: OXYTOCIN 30 UNITS/LR 500 ML IV SCH ×2 (08:30)
[2017-02-14] MEDS ORDERED: OXYTOCIN 30 UNITS/LR 500 ML IV PRN (08:30)
[2017-02-14] MEDS ORDERED: ACETAMINOPHEN/CODEINE #3 TAB PO PRN (08:30)
[2017-02-14] MEDS: LACTATED RINGER'S 1,000 ML IV SCH ×3 (08:38→22:16)
[2017-02-14 09:08] LABS: ADD SCAN DIFF NO
[2017-02-14 09:10] LABS: BASOPHILS % 0.3 % (0.0-2.0); EOSINOPHILS # 0.1 10^3/ul (0.0-0.5); EOSINOPHILS % 0.9 % (0.0-7.0); HEMATOCRIT 38.5 % (37.0-47.0); HEMOGLOBIN 12.9 g/dl (12.0-16.0); LYMPHOCYTES % 26.3 % (15.0-51.0); MEAN CORPUSCULAR HEMOGLOBIN 32.6 pg (29.0-33.0); MEAN CORPUSCULAR HGB CONC 33.5 g/dl (32.0-37.0); MEAN CORPUSCULAR VOLUME 97.2 fl (82.0-101.0); MEAN PLATELET VOLUME 11.2 fl (7.4-10.4); MONOCYTE # 0.7 10^3/ul (0.3-0.9); MONOCYTES % 9.8 % (0.0-11.0); NEUTROPHIL # 4.6 10^3/ul (1.6-7.5); NEUTROPHILS % 62.3 % (39.0-77.0); PLATELET COUNT 167 10^3/UL (140-415); RED BLOOD COUNT 3.96 10^6/ul (4.20-5.40); RED CELL DISTRIBUTION WIDTH 13.4 % (11.5-14.5); WHITE BLOOD COUNT 7.5 10^3/ul (4.8-10.8)
[2017-02-14 09:31] LABS: INR 0.88; PROTIME 11.9 Sec (12.2-14.2); PT RATIO 0.9
[2017-02-14 09:32] LABS: PARTIAL THROMBOPLASTIN TIME 27.5 Sec (25.0-35.0)
--- NOTE | 2017-02-14 09:36 | RADRPT ---
PROCEDURE: OB ultrasound for biophysical profile CLINICAL INDICATION: Labor TECHNIQUE: Multiple sonographic images of the pelvis were obtained. Transabdominal views of the g ravid uterus are available for review. The images were reviewed on a PACS workstation. COMPARISON: None FINDINGS: breathing movement = 2/2 tone = 2/2 motion = 2/2 ROE = 2/2 ROE = 8.6 cm Single live intrauterine with cardiac activity of 141 bpm. position is cephal ic. The placenta is fundal. IMPRESSION: 1. Single live intrauterine gestation. 2. Biophysical profile = 8/8. 3. ROE = 8.6 cm. RPTAT: HH .Marah Mcclure MD, MD Date Time Electronically viewed and signed by .Marah Mcclure MD, on 02/14/2017 09:36 .G/
--- NOTE | 2017-02-14 09:38 | RADRPT ---
PROCEDURE: US OB. CLINICAL INDICATION: Size and dates, labor TECHNIQUE: Multiple sonographic images of the pelvis were obtained. Transabdominal imaging only w as performed. The images were reviewed on a PACS workstation. COMPARISON: No prior studies are available for comparison. FINDINGS: There is a single live intrauterine gestation. Cardiac activity is present with 139 beats per minut e. position is cephalic. Measurements were made in order to determine age. The results are as follows: BPD = 9.35 cm HC = 32.93 cm AC = 33.65 cm FL = 7.21 cm. Estimated gestational age of approximately 37 weeks 3 days. The estimated date of delivery is 03/04/2017. The EFW = 3214 g, 30.6 %ile. The placenta is fundal. There is no evidence for an abruption or placenta previa. IMPRESSION: 1. Single live intrauterine gestation of approximately 37 weeks 3 days, by ultrasound criteria. 2. The estimated date of delivery is 03/04/2017. 3. The estimated weight is 3214 g, 30.6 %ile. RPTAT: HH .Marah Mcclure MD, Date Time Electronically viewed and signed by .Marah Mcclure MD, on 02/14/2017 09:38 .G/
[2017-02-14] MEDS ORDERED: LACTATED RINGER'S 1,000 ML IV PRN (10:00)
[2017-02-14] MEDS: MISOPROSTOL 25 MCG CAPSULE PO PRN ×2 (10:29→20:38)
[2017-02-14] MEDS ORDERED: MISOPROSTOL 25 MCG CAPSULE PO PRN (10:30)
[2017-02-14 11:02] LABS: BARBITURATES Negative (NEGATIVE); BENZODIAZEPINES Negative (NEGATIVE); OPIATES Negative (NEGATIVE)
[2017-02-14 11:03] LABS: CANNABINOIDS Negative (NEGATIVE)
[2017-02-14 11:04] LABS: COCAINE Negative (NEGATIVE)
[2017-02-15] MEDS ORDERED: FENTAnyl 2MCG/ML-ROPIV 0.2% 100 ML ONE (02:30)
[2017-02-15] MEDS ORDERED: NALOXONE (0.4 MG/ML) INJ IV PRN (03:00)
[2017-02-15] MEDS: MISOPROSTOL 25 MCG CAPSULE PO PRN (05:05)
[2017-02-15] MEDS: LACTATED RINGER'S 1,000 ML IV SCH ×2 (10:28→15:01)
[2017-02-15] MEDS: FENTAnyl 2MCG/ML-ROPIV 0.2% 100 ML BAG EPI SCH ×2 (10:58→11:31)
[2017-02-15] MEDS ORDERED: OXYTOCIN 30 UNITS/LR 500 ML IV SCH (11:00)
--- NOTE | 2017-02-15 12:01 | PREOPHP ---
DATE OF ADMISSION: 02/14/2017 HISTORY OF PRESENT ILLNESS: Ms. Michael Suazo is a 26-year-old 3, para 0, EDC 02/21/2017, in trauterine at 39 weeks and 1 day gestational age, was admitted yesterday for induction sec ondary to history of oligohydramnios. She was started on the Cytotec regimen and is currently 2 cm dilated, 50% effaced, -3 station. She is currently on Pitocin for induction. She denies any vagina l bleeding or discharge. She has an epidural. Her care took place at [facility]. PAST MEDICAL HISTORY: None. MEDICATIONS: vitamins. OBSTETRICAL HISTORY: x2 termination of . GYNECOLOGIC HISTORY: 10, regular 3 to 4 days. Denies any sexually transmitted diseases. Sexually active with 1 partner. SOCIAL HISTORY: History of positive marijuana use. FAMILY HISTORY: None. PHYSICAL EXAMINATION: HEENT: Within normal. LUNGS: CTA bilateral. CARDIOVASCULAR: S1, S2, regular rate and rhythm. ABDOMEN: Gravid, nontender. Negative CVA tenderness. EXTREMITIES: Negative edema. No calf tenderness. PELVIC: Vaginal exam 2, 50, -3. heart tracing category 1, toco, regular contractions. ASSESSMENT: A 26-year-old 3, para 0, intrauterine at 39 weeks' gestational age. History of oligohydramnios. Recommended delivery at [address] Luna. PLAN: To continue Pitocin for induction. Risks, benefits and alternatives explained. All question s were answered. Dictated By: DEBBIE FARRELL/YANETH Conf#: [id number] DID#: [id number]
[2017-02-15] MEDS ORDERED: LACTATED RINGER'S 1,000 ML IV* SCH (15:28)
--- NOTE | 2017-02-15 15:28 | LDN ---
Date/Time of Note Date/Time of Note DATE: 02/15/17 TIME: 15:26 Delivery Summary Weeks of Gestation 39 wks Placenta Delivered: Spontaneously Meconium: none Episiotomy: Yes Indication for episiotomy distress Laceration repair: rmle repair with 2-0 and 3-0 chromic Anesthesia type: Epidural Sponge & Needle done & correct: Yes All needle counts correct: Yes Any foreign bodies felt in the: No Problems: Delivery Information Sex Sex: female Apgars 1 Minute: 9 5 Minute: 9 Suctioning Nose & mouth suctioned at geoff: No Delee suction performed: No Umbilical Cord Umbilical cord with: 3 Vessels Cord presentations: no nuchal cord Cord Blood was obtained: Yes DEBBIE MARSHALL MD Feb 15, 2017 15:28
[2017-02-15] MEDS ORDERED: DIBUCAINE 1% 30 GM OINT PR PRN (15:30)
[2017-02-15] MEDS ORDERED: MISOPROSTOL 200 MCG TAB PR PRN (15:30)
[2017-02-15] MEDS ORDERED: OXYTOCIN 30 UNITS/LR 500 ML IV PRN (15:30)
[2017-02-15] MEDS ORDERED: METHYLERGONOVINE 0.2 MG INJ IM PRN (15:30)
[2017-02-15] MEDS ORDERED: OXYCODONE/ASPIRIN (4.88/325) TAB PO PRN (15:30)
[2017-02-15] MEDS ORDERED: ONDANSETRON 4 MG INJ IV PRN (15:30)
[2017-02-15] MEDS ORDERED: SENNA/DOCUSATE NA (8.6MG/50MG) TAB PO PRN (15:30)
[2017-02-15] MEDS ORDERED: BENZOCAINE 20% 56 ML SPRAY TOP PRN (15:30)
[2017-02-15] MEDS ORDERED: CARBOPROST 250 MCG INJ IM PRN (15:30)
[2017-02-15] MEDS ORDERED: WITCH HAZEL/GLYCERIN PAD PR PRN (15:30)
[2017-02-15] MEDS: OXYCODONE/ASPIRIN (4.88/325) TAB PO PRN (17:10)
[2017-02-15] MEDS: IBUPROFEN 600 MG TAB PO SCH ×2 (18:48→23:55)
[2017-02-15 18:55] VITALS: BP 119/73; PULSE 74; RESP 18
[2017-02-15 19:40] VITALS: BP 112/60; PULSE 72; RESP 20
[2017-02-15] MEDS: SENNA/DOCUSATE NA (8.6MG/50MG) TAB PO SCH (21:20)
[2017-02-16 03:45] VITALS: BP 106/51; PULSE 72; RESP 18
[2017-02-16] MEDS: IBUPROFEN 600 MG TAB PO SCH ×4 (05:41→23:29)
[2017-02-16 07:21] LABS: HEMATOCRIT 31.8 % (37.0-47.0); HEMOGLOBIN 10.5 g/dl (12.0-16.0)
[2017-02-16 08:00] VITALS: BP 117/70; PULSE 98; RESP 18
[2017-02-16] MEDS: SENNA/DOCUSATE NA (8.6MG/50MG) TAB PO SCH ×2 (08:39→20:39)
[2017-02-16] MEDS: OXYCODONE/ASPIRIN (4.88/325) TAB PO PRN ×2 (08:40→19:40)
[2017-02-16 16:22] VITALS: BP 125/63; PULSE 83; RESP 18
[2017-02-16 20:30] VITALS: BP 119/82; PULSE 82; RESP 18
--- NOTE | 2017-02-16 23:31 | PD.PPDC ---
OPERATING ROOM ASSISTANT Discharge Instruction Condition Patient Condition: Fair Diet Diet: Resume Regular Diet Activity/Restrictions Restrictions: No Sexual Activity Nothing in the Vagina No [place] No Tampons, douche Follow-up Follow-up with Physician: 3, Week/Weeks Return to clinic for FLOOR NURSE Instructions: Fever greater than 101 Chills Worsening abdominal pain Excessive Vaginal Bleeding More than 2 pads per hour Unable to tolerate diet OB Instructions: Breast Tenderness Depression Blurried Vision Headache Surgical Instructions: Incisional Drainage Incisional Redness DEBBIE MARSHALL MD Feb 16, 2017 23:31
[2017-02-16] MEDS ORDERED: FER325 PO (23:32)
--- NOTE | 2017-02-17 02:15 | DS ---
DATE OF ADMISSION: 02/14/2017 DATE OF DISCHARGE: 02/17/2017 PRIMARY DIAGNOSIS: A 26-year-old, 3, para 0, intrauterine at 39 weeks gestational age, history of oligohydramnios, recommended delivery at 39 weeks. PROCEDURE: Normal spontaneous vaginal delivery. CONDITION ON DISCHARGE: Stable. ACTIVITY: None per vagina, no heavy lifting x6 weeks. DIET: Regular. MEDICATIONS ON DISCHARGE 1. Motrin. 2. Iron. 3. Colace. DISCHARGE SUMMARY: Ms. Michael Suazo is a 26-year-old, 3, para 1, status post normal spontan eous vaginal delivery on 02/15/2017. She had a viable female, 9 and 9 respectively at one and five minutes. She had an uneventful day 1. She was discharged on day 2. Redd martin is ambulating, tolerating diet, positive flatulence, positive bowel movement. She will follow up in the office in approximately 3 weeks for care. Dictated By: DEBBIE FARRELL/YANETH Conf#: [id number] DID#: [id number]
[2017-02-17 04:20] VITALS: BP 116/72; PULSE 68; RESP 18
[2017-02-17] MEDS: IBUPROFEN 600 MG TAB PO SCH (05:42)
[2017-02-17] MEDS: OXYCODONE/ASPIRIN (4.88/325) TAB PO PRN (07:48)
[2017-02-17 08:29] VITALS: BP 120/71; PULSE 79; RESP 20
[2017-02-17] MEDS ORDERED: FERROUS SULFATE (EC) 325 MG TAB PO SCH (09:00)
[2017-02-17] MEDS: SENNA/DOCUSATE NA (8.6MG/50MG) TAB PO SCH (09:35)
[2017-02-17] MEDS ORDERED: FER325 PO (10:33)
== END 2017-02-17 12:28 | disposition home or self-care (01) | DRG 775 ==
LOC: L-D 08:00 → PP1 02-15 18:14
PROVIDERS: ADMIT Obstetrics & Gynecology; ATTEND Obstetrics & Gynecology
PROC: 10E0XZZ Delivery of Products of Conception, External Approach (ICD-10-PCS; principal; 2017-02-15)
PROC: 0W8NXZZ Division of Female Perineum, External Approach (ICD-10-PCS; 2017-02-15)
DX: O80 Encounter for full-term uncomplicated delivery (principal); Z37.0 Single live birth; Z3A.39 39 weeks gestation of pregnancy
CPT/HCPCS: 62319; 76815; 76818; 80307; 85014; 85018; 85025; 85610; 85730; 86592; 86900; 86901; 87340; 99464; J2590; J3010; J7120